=== PATIENT | female | born 1990 | race Caucasian/White ===

== ENCOUNTER 2021-07-13 10:43 | Outpatient (CLI) | payer OTHER ==
[2021-07-13 11:12] LABS: ALBUMIN 4.1 g/dL (3.2-5.5); ALBUMIN/GLOBULIN RATIO 1.3 (1.0-2.2); ALKALINE PHOSPHATASE 50 IU/L (42-121); ALT ALANINE AMINOTRANSFERASE 20 IU/L (10-60); AST ASPARTATE AMINOTRANSFERASE 18 IU/L (10-42); BILIRUBIN,TOTAL 0.9 mg/dL (0.2-1.0); BUN - BLOOD UREA NITROGEN 9 mg/dL (6-20); CALCIUM 9.2 mg/dL (8.5-10.3); CARBON DIOXIDE - CO2 23 mmol/L (21-32); CHLORIDE 106 mmol/L (101-111); CHOL/HDL RATIO 7.4 (<4.4); CHOLESTEROL 267 mg/dL; CREATININE 0.9 mg/dL (0.4-1.0); GFR - MDRD 73 (>89); GLUCOSE 109 mg/dL (70-100); HDL CHOLESTEROL 36 mg/dL; LDL CHOLESTEROL,CALCULATED 209 mg/dL; LDL/HDL RATIO 5.8 (<4.4); POTASSIUM 4.2 mmol/L (3.5-5.0); SODIUM 138 mmol/L (135-145); TOTAL PROTEIN 7.3 g/dL (6.7-8.2); TRIGLYCERIDES 108 mg/dL; VLDL CHOLESTEROL 22 mg/dL
[2021-07-14 09:21] LABS: HEPATITIS C ANTIBODY NON-REACTIVE (NON-REACTIVE)
== END 2021-07-13 10:44 | disposition home or self-care (01) ==
LOC: LAB 10:43
PROVIDERS: ATTEND Physician Assistant
DX: Z79.899 Other long term (current) drug therapy (principal); Z13.6 Encounter for screening for cardiovascular disorders
CPT/HCPCS: 36415; 80053; 80061; 83721; 86803

== ENCOUNTER 2022-04-23 08:26 | Emergency (ER) | payer OTHER ==
--- NOTE | 2022-04-23 08:49 | ED Physician Documentation ---
PD HPI NVD - Stated complaint Stated Complaint: DIARRHEA - Chief complaint Chief Complaint: Abd Pain - History obtained from History obtained from: Patient - History of Present Illness Timing - onset: How many days ago (4-5) Timing - duration: Days (4-5) Timing - details: Abrupt onset, Still present Associated symptoms: Fever (first day subjectively), Abdominal pain (cramping diffuse the past day, not with initial diarrhea.), Loss of appetite, Other (nausea without vomiting. Watery diarrhea every 1-2 hours for 4-5 days now.). No: Near syncope / syncope, Dysuria Contributing factors: No: Sick contact, Bad food, Travel, Recent antibiotics Improved by: No: Eating, BM Worsened by: Eating Similar symptoms before: Has not had sx before Recently seen: Not recently seen Review of Systems Constitutional: reports: Myalgias. denies: Fever, Chills Nose: denies: Rhinorrhea / runny nose, Congestion Throat: denies: Sore throat Respiratory: denies: Cough GI: reports: Abdominal Pain (cramping intermittent), Nausea, Diarrhea (has had diarrhea for 4-5 days, with increased cramping the past 3 days.). denies: Abdominal Swelling, Vomiting, Bloody / black stool Skin: denies: Rash, Lesions Neurologic: reports: Generalized weakness, Near syncope (feeling lightheaded with standing yesterday/today.). denies: Syncope PD PAST MEDICAL HISTORY - Past Medical History Respiratory: Asthma Endocrine/Autoimmune: None GI: None Psych: Depression, Anxiety - Past Surgical History Past Surgical History: No - Present Medications Home Medications: Ambulatory Orders Medication Instructions Recorded Confirmed Etonogestrel/Ethinyl Estradiol 1 vag ring 05/27/14 05/27/14 [Nuvaring Vaginal Ring] Trazodone HCl 50 mg PO DAILY 05/27/14 09/28/21 Lurasidone HCl [Latuda] 80 mg PO DAILY 09/28/21 09/28/21 Cetirizine [ZyrTEC] 10 mg PO BID 09/29/21 09/29/21 Dextroamphetamine/Amphetamine 25 mg PO DAILY 09/29/21 09/29/21 [Adderall 20 mg Tablet] Escitalopram [Lexapro] 20 mg PO DAILY 09/29/21 09/29/21 Gabapentin [Neurontin] 300 mg PO TID 09/29/21 09/29/21 buPROPion HCL [Bupropion HCl] 150 mg PO DAILY 09/29/21 09/29/21 Azithromycin [Zithromax] 500 mg PO DAILY 3 Days #6 tablet 04/23/22 Diphenoxylate/Atropine [Lomotil] 1 each PO QID PRN #16 tablet 04/23/22 Promethazine [Phenergan] 25 mg PO Q6H PRN #20 tab 04/23/22 dexAMETHasone [Decadron] 4 mg PO DAILY #5 tablet 04/23/22 - Allergies Allergies/Adverse Reactions: Allergies Allergy/AdvReac Type Severity Reaction Status Date / Time amoxicillin Allergy Hives Verified 04/23/22 08:47 naproxen Allergy Unknown Verified 04/23/22 08:47 risperidone Allergy Unknown Verified 04/23/22 08:47 venlafaxine [From Effexor] AdvReac Unknown Verified 04/23/22 08:47 - Living Situation Living Situation: reports: With spouse/s.o. Living Arrangement: reports: At home - Social History Does the pt smoke?: No Smoking Status: Never smoker Does the pt drink ETOH?: Yes Does the pt have substance abuse?: No - Family History Family history: reports: Other (FH of IBD/possible crohns in several family members. ) - Immunizations Immunizations are current?: Yes PD ED PE NORMAL - Vitals Vital signs reviewed: Yes - General General: Alert and oriented X 3, No acute distress, Well developed/nourished - Neck Neck: Supple, no meningeal sign, No adenopathy - Cardiac Cardiac: RRR, No murmur - Respiratory Respiratory: Clear bilaterally - Abdomen Abdomen: Normal bowel sounds, Soft, Non distended, No organomegaly, Other (some tenderness mid to lower abd on left and center. Not tender in RLQ itself. No upper abd tenderness. ) - Female Female : Deferred - Rectal Rectal: Deferred - Back Back: No CVA TTP - Derm Derm: Normal color, Warm and dry - Extremities Extremities: No edema, No calf tenderness / cord Results - Vitals Vitals: Vital Signs - 24 hr 04/23/22 04/23/22 04/23/22 08:46 08:58 11:40 Temperature 36.8 C Heart Rate 97 90 68 Respiratory 14 18 18 Rate Blood Pressure 129/86 H 123/106 H 108/74 O2 Saturation 95 99 99 04/23/22 12:38 Temperature Heart Rate 93 Respiratory 18 Rate Blood Pressure 113/81 H O2 Saturation 99 Oxygen O2 Source Room air - Labs Labs: Laboratory Tests 04/23/22 04/23/22 04/23/22 09:23 09:23 09:23 WBC 6.4 RBC 4.00 L Hgb 12.3 Hct 36.8 L MCV 92.0 MCH 30.8 MCHC 33.4 RDW 12.1 Plt Count 241 MPV 10.2 Neut # (Auto) 3.7 Lymph # (Auto) 1.9 Swisher # (Auto) 0.6 Eos # (Auto) 0.2 Baso # (Auto) 0.0 Absolute Nucleated RBC 0.00 Nucleated RBC % 0.0 ESR 33 H Sodium 138 Potassium 3.4 L Chloride 107 Carbon Dioxide 21 Anion Gap 10.0 BUN 7 Creatinine 0.7 Estimated GFR (MDRD) 97 Glucose 126 H Calcium 8.8 Magnesium 2.0 Total Bilirubin 0.3 AST 20 ALT 26 Alkaline Phosphatase 42 Total Protein 6.6 L Albumin 3.5 Globulin 3.1 Albumin/Globulin Ratio 1.1 Lipase 45 Stool Leukocytes, Qual Stl C. diff Tox B Gene 04/23/22 04/23/22 10:15 10:15 WBC RBC Hgb Hct MCV MCH MCHC RDW Plt Count MPV Neut # (Auto) Lymph # (Auto) Swisher # (Auto) Eos # (Auto) Baso # (Auto) Absolute Nucleated RBC Nucleated RBC % ESR Sodium Potassium Chloride Carbon Dioxide Anion Gap BUN Creatinine Estimated GFR (MDRD) Glucose Calcium Magnesium Total Bilirubin AST ALT Alkaline Phosphatase Total Protein Albumin Globulin Albumin/Globulin Ratio Lipase Stool Leukocytes, Qual POSITIVE Stl C. diff Tox B Gene NEGATIVE PD Medical Decision Making - ED course Complexity details: reviewed results (eSR is elevated at 33 and stool leukocystes are positive. still pending is stool culture and calprotectin to help differentiate bacterial or possible IBD. Can treat with anti-inflammtories as well as antidiarrheal and antiemetics.), re-evaluated patient (she is feeling improved with iv fluids and some meds. ), considered differential (abd without peritoneal findings nor localized tender. Considered but did not feel likely disagnostic to get imaging like cT. More important is to evaluate for infectious/bacterial vs inflammatory, such as IBD. ), d/w patient Drug Therapy Requiring Monitoring for Toxicity: given IV fluids for hydration, and also IV toradol and morphine as well as Zofran for symptoms. Improved symptoms and no side effects/problems from meds. Departure - Departure Disposition: 01 Home, Self Care Clinical Impression: Severe diarrhea Condition: Stable Record reviewed to determine appropriate education?: Yes Follow-Up: TACO SPARKS PA-C [Primary Care Provider] - Prescriptions: dexAMETHasone [Decadron] 4 mg PO DAILY #5 tablet Diphenoxylate/Atropine [Lomotil] 1 each PO QID PRN #16 tablet PRN Reason: Diarrhea Promethazine [Phenergan] 25 mg PO Q6H PRN #20 tab PRN Reason: Nausea / Vomiting Azithromycin [Zithromax] 500 mg PO DAILY 3 Days #6 tablet Comments: Your persistent diarrhea is concerning for potential bacterial or inflammatory causes rather than just a "stomach flu". The stool culture studies are still pending results and likely will be later today or tomorrow for the results. You do have an elevated ESR (sed rate) at 33 and also some white cells in your stool which are more indicative of either a bacterial or possibly immune inflammatory causes. At this point we will treat symptoms of nausea with promethazine every 6 hours if needed and the diarrhea with Lomotil antidiarrheal medicine every 6 hours if needed as well. Take 1-2 Lomotil for the diarrhea. To help with inflammation of the intestine, some anti-inflammatories could be appropriate and there is a prescription for that as well. I sent these to [facility] pharmacy. At this point, it depends on how well you do and what your remaining tests show. If you are stool test for any bacteria are positive then we would treat those more specifically. If your stool culture tests are negative, there could possibly still be a bacterial cause or more suspicious for an immune inflammatory cause. If your symptoms have not resolved over a day or 2 with the above medications and your stool culture test is negative, then you could try empiric antibiotic of azithromycin for 3 days in case of a bacterial cause not picked up by the stool test. I printed this when out without sending her to the pharmacy as its not clear that you will need to take it. There is another stool test pending called fecal calprotectin which correlates with autoimmune inflammatory type causes. If that is positive then further work-up with a colonoscopy would be advised. If you are improved with the above regimens in the stool tests in general are subsequently negative, then just seeing if you have any further episodes may be most prudent that we can talk with your primary care about any further testing such as colonoscopy. Discharge Date/Time: 04/23/22 12:56
[2022-04-23] MEDS ORDERED: SODIUM CHLORIDE 0.9% 1,000 ML IV STA (09:14)
[2022-04-23] MEDS ORDERED: ONDANSETRON 4 MG/2 ML VIAL IVP STA (09:14)
[2022-04-23 09:28] LABS: BASOPHILS % (AUTO) 0.3 %; EOSINOPHILS # (AUTO) 0.2 10^3/uL (0.0-0.7); EOSINOPHILS % (AUTO) 2.8 %; HCT - HEMATOCRIT 36.8 % (37.0-47.0); HGB - HEMOGLOBIN 12.3 g/dL (12.0-16.0); LYMPHOCYTES # (AUTO) 1.9 10^3/uL (1.5-3.5); LYMPHOCYTES % (AUTO) 30.4 %; MEAN CORPUSCULAR HEMOGLOBIN 30.8 pg (27.0-31.0); MEAN CORPUSCULAR HGB CONC 33.4 g/dL (32.0-36.0); MEAN PLATELET VOLUME 10.2 fL (7.9-10.8); MONOCYTES # (AUTO) 0.6 10^3/uL (0.0-1.0); MONOCYTES % (AUTO) 9.1 %; NEUTROPHILS # (AUTO) 3.7 10^3/uL (1.5-6.6); NEUTROPHILS % (AUTO) 57.2 %; PLT - PLATELET COUNT 241 10^3/uL (130-450); RED CELL DISTRIBUTION WIDTH 12.1 % (12.0-15.0); WHITE BLOOD COUNT 6.4 x10^3/uL (4.8-10.8)
[2022-04-23 09:41] LABS: ALBUMIN 3.5 g/dL (3.2-5.5); ALBUMIN/GLOBULIN RATIO 1.1 (1.0-2.2); BILIRUBIN,TOTAL 0.3 mg/dL (0.2-1.0); CALCIUM 8.8 mg/dL (8.5-10.3); CREATININE 0.7 mg/dL (0.4-1.0); POTASSIUM 3.4 mmol/L (3.5-5.0); TOTAL PROTEIN 6.6 g/dL (6.7-8.2)
[2022-04-23] MEDS ORDERED: MORPHINE 2 MG/ML CARPUJECT IVP STA (10:51)
[2022-04-23] MEDS ORDERED: DIPHENOX/ATROPINE 2.5/0.025 MG TABLET PO STA (10:51)
[2022-04-23] MEDS ORDERED: LACTATED RINGERS 1,000 ML IV STA (10:51)
[2022-04-23] MEDS ORDERED: DEXAMETHASONE 10 MG/ML VIAL IVP STA (12:27)
[2022-04-23 12:39] VITALS: BP 113/81
== END 2022-04-23 12:56 | disposition home or self-care (01) ==
LOC: ED 08:26
DX: R11.0 Nausea (principal); R19.7 Diarrhea, unspecified
CPT/HCPCS: 36415; 80053; 83630; 83690; 83735; 83993; 85025; 85651; 87045; 87046; 87427; 87493; 96361; 96374; 96375; 99284; A9270; J7120